=== PATIENT | male | born 1965 | race Caucasian/White ===

== ENCOUNTER → 2016-09-01 | Outpatient (CLI) | payer OTHER ==
[~2016-09-01] MED LIST: ASPIRIN 81MG TA81 MG PO; CRESTOR10 MG PO; DAILY MULTIPLE1 T11 PO; DILTIAZEM 24HR120 MG PO; FARXIGA10 MG PO; FENOFIBRATE160 MG PO; FERROUS SULFAT200 M1 PO; KEFLEX 500MG.500 MG PO; LEVAQUIN500 MG PO; LISINOPRIL/HCTZ1 TA3 PO; MEDROL 4MG. DOSE4 MG PO; METFORMIN ER500 MG PO; OMEPRAZOLE20 MG PO; PREDNISONE 20MG20 MG PO; RITE AID FISH1000 MG PO; RITE AID KRILL500 MG PO; SIMVASTATIN40 MG PO; SYMBICORT1 AE1 IH; TESTIM1% TP; VITAMIN D35000 IU PO; XARELTO20 MG PO; ZOFRAN4 MG PO
[2016-09-01 16:38] LABS: BUN 18 mg/dL (7-18)
[2016-09-01 16:51] LABS: GFR (ESTIMATED) 64 ML/MIN (>60)
== END ==
LOC: LAB 15:18
PROVIDERS: Family Medicine
DX: Z01.812 Encounter for preprocedural laboratory examination (principal)

== ENCOUNTER → 2016-09-02 | Outpatient (CLI) | payer OTHER ==
--- NOTE | 2016-09-06 09:54 | RADIOLOGY REPORT PS360 ---
CT ABD W/ CONTRAST CLINICAL INDICATION: Follow-up splenic lesion LEFT UPPER QUADRANT ABDOMINAL MASS ORDERING PHYSICIAN: Heriberto Yu MD PATIENT AGE: 50 years COMPARISON: 04/14/2016 FINDINGS: The lung bases are clear. There is mild diffuse hepatic steatosis. No focal liver lesion evident. No radio opaque gallstones or biliary dilatation. There remains a soft tissue density medial to the posterior medial aspect of the spleen measuring approximately 2.2 cm transverse. This does not appear significantly changed from 04/14/2016 but is very slightly larger when compared to a study of 07/23/2015. Etiology is indeterminate. The margins are somewhat obscured. There is a rounded 2.5 cm well-circumscribed opacity medial to the anterior aspect of the spleen consistent with a splenule which is stable. No retroperitoneal adenopathy apparent no intraperitoneal adenopathy. There are cortical cysts of the kidneys. The spleen itself, pancreas, and adrenal glands are unremarkable. No acute bony anomalies. IMPRESSION: 1. Stable CT appearance of the soft tissue density medial to the posterior aspect of the spleen compared to 04/14/2016. Continued 6 month follow-up is recommended. Etiology is indeterminate. Small area of extra medullary hematopoiesis considered.
== END ==
LOC: RAD 08:51
DX: R19.02 Left upper quadrant abdominal swelling, mass and lump (principal)
CPT/HCPCS: Q9967